=== PATIENT | female | born 1950 | race Caucasian/White ===

== ENCOUNTER → 2019-06-24 14:27 | Outpatient (ROUT) | payer MEDICARE, OTHER, SELFPAY ==
[2019-06-24 15:08] LABS: Thyroid Stimulating Hormone 0.82 uIU/mL (0.47-4.68)
== END ==
PROVIDERS: Visit Provider Internal Medicine
DX: E03.9 Hypothyroidism, unspecified (principal)
CPT/HCPCS: 84443

== ENCOUNTER → 2019-07-24 09:16 | Outpatient (CLI) | payer MEDICARE, OTHER, SELFPAY ==
[2019-07-24 10:27] LABS: BUN Creatinine Ratio 11.1 (6-22); Blood Urea Nitrogen 10 mg/dL (7-17); Estimated Glomerular Filt Rate > 60.0 mL/min (>60)
--- NOTE | 2019-07-24 10:46 | DI.CT.S_ITS ---
PROCEDURE: CT ABDOMEN PELVIS W CON INDICATIONS: generalized abdominal pain TECHNIQUE: After the administration of oral and intravenous contrast, 5 mm thick sections acquired from the diaphragms to the symphysis. 5 mm thick coronal and sagittal reformats were performed. For radiation dose reduction, the following was used: automated exposure control, adjustment of mA and/or kV according to patient size. COMPARISON: None. FINDINGS: Image quality: Excellent. ABDOMEN: Lung bases: Lung bases are clear. Heart size is normal. Solid organs: A 1 cm hypodensity adjacent to the falciform ligament is most likely secondary to focal fat. Liver is normal in size and enhancement. Gallbladder is normal. Biliary system is non-dilated. Pancreas enhances normally. Spleen is normal in size and enhancement. No adrenal nodules. Kidneys are normal in size and enhancement, without hydronephrosis. Peritoneum and bowel: Stomach, small bowel, and colon loops are normal in caliber. There is mild concentric thickening of gastric antrum. There may be cecal wall thickening. There is a moderate amount of stool in colon. No free fluid or air. Nodes and vessels: No retroperitoneal or mesenteric adenopathy. Aorta and inferior vena cava are normal in caliber. Miscellaneous: No ventral hernias. PELVIS: Genitourinary: Bladder wall thickness is normal. Miscellaneous: No inguinal hernias or adenopathy. Bones: No suspicious bony lesions. No vertebral body compression fractures. IMPRESSION: 1. Mild concentric thickening of gastric antrum. Differential diagnosis include enteritis, peptic ulcer disease and artifact from peristalsis. 2. Appearance of mild cecal wall thickening versus artifact. If clinically indicated, endoscopic evaluation may be obtained for further ventilation. 3. Moderate amount of stool in colon. 4. A 1 cm hepatic hypodensity adjacent to the falciform ligament, most likely caused by focal fat. Dictated by: Gustavo Cardenas M.D. on 07/24/2019 at 11:55 Approved by: Gustavo Cardenas M.D. on 07/24/2019 at 17:15
== END ==
PROVIDERS: Visit Provider Internal Medicine
DX: R10.84 Generalized abdominal pain (principal)
CPT/HCPCS: 36415; 74177; 82565; 84520; Q9967

== ENCOUNTER → 2020-03-13 08:22 | Outpatient (CLI) | payer MEDICARE, OTHER, SELFPAY ==
--- NOTE | 2020-03-13 | DI.MG.S_ITS ---
UNILATERAL RIGHT DIGITAL SCREENING MAMMOGRAM 3D/2D WITH CAD POST MASTECTOMY: 03/13/2020 CLINICAL: Routine screening. Personal history of left breast cancer. Comparison is made to exams dated: 01/23/2019 mammogram, 01/15/2018 mammogram, and 01/10/2017 mammogram - [facility]. There are scattered fibroglandular elements in right breast. Current study was also evaluated with a Computer Aided Detection (CAD) system. No significant masses, calcifications, or other findings are seen in the breast. There has been no significant interval change. IMPRESSION: NEGATIVE There is no mammographic evidence of malignancy. A 1 year screening mammogram is recommended. This exam was interpreted at Station ID: [id number]. NOTE: For mammograms, a report in lay terms will be sent to the patient. Approximately 15% of breast malignancies will not be visualized mammographically. In the management of a palpable breast mass, a negative mammogram must not discourage biopsy of a clinically suspicious lesion. Electronically Signed By: Virgilio man/beto:03/15/2020 07:25:29 copy to: JANUSZ LEAVITT letter sent: Normal Exam ACR BI-RADS Category 1: Negative 3341F
== END ==
PROVIDERS: PCP Internal Medicine; Referring Provider Internal Medicine; Visit Provider Internal Medicine
DX: Z12.31 Encounter for screening mammogram for malignant neoplasm of breast (principal); Z85.3 Personal history of malignant neoplasm of breast
CPT/HCPCS: 77063; 77067

== ENCOUNTER → 2020-10-04 19:08 | Outpatient (ROUT) | payer MEDICARE, OTHER, SELFPAY ==
[2020-10-04 19:22] LABS: Add Manual Diff / Slide Review NO; Basophils Absolute Auto 0 /uL (0-100); Basophils Percent Auto 0.4 % (0-2); Eosinophils Absolute Auto 100 /uL (0-450); Eosinophils Percent Auto 2.2 % (2-4); Hematocrit 39.7 % (36-46); Lymphocytes Absolute Auto 1600 /uL (1100-4500); Lymphocytes Percent Auto 34.7 % (25-40); Mean Corpuscular HGB Conc 32.8 % (30-36); Mean Corpuscular Hemoglobin 29.7 PG (26-34); Mean Corpuscular Volume 90.6 fL (80-100); Monocytes Absolute Auto 400 /uL (0-900); Monocytes Percent Auto 9.9 % (3-14); Neutrophils Absolute Auto 2400 /uL (1500-7000); Neutrophils Percent Auto 52.8 % (50-75); Platelet Count 217 X10^3/uL (150-400); Red Blood Cell Count 4.38 X10^6/uL (4.0-5.2); Red Cell Distribution Width 13.3 % (11.6-14.8); White Blood Cell Count 4.5 X10^3/uL (4.5-11.0)
[2020-10-04 19:29] LABS: Aspartate Aminotransferase 26 IU/L (14-36); BUN Creatinine Ratio 18.1 (6-22); Blood Urea Nitrogen 15 mg/dL (7-17); Calcium 9.8 mg/dL (8.4-10.2); Carbon Dioxide 34 mmol/L (22-32); Chloride 100 mmol/L (98-107); Cholesterol 242 mg/dL (140-199); Estimated Glomerular Filt Rate > 60.0 mL/min (>60); Glucose 107 mg/dL (80-110); HDL Cholesterol 69 mg/dL (40-60); HEMOLYSIS < 15 (0-50); LDL Cholesterol Calculated 163 mg/dL (<100); Potassium 4.4 mmol/L (3.4-5.1); Sodium 138 mmol/L (137-145); Triglycerides 52 mg/dL (35-150)
[2020-10-04 19:58] LABS: TSH w/ Reflex to FT4 0.86 uIU/mL (0.47-4.68)
== END ==
PROVIDERS: PCP Internal Medicine; Visit Provider Internal Medicine
DX: E78.2 Mixed hyperlipidemia (principal); E03.9 Hypothyroidism, unspecified
CPT/HCPCS: 80048; 80061; 84443; 84450; 85025

== ENCOUNTER → 2021-03-24 10:37 | Outpatient (CLI) | payer MEDICARE, OTHER, SELFPAY ==
--- NOTE | 2021-03-24 | DI.MG.S_ITS ---
UNILATERAL RIGHT DIGITAL SCREENING MAMMOGRAM 3D/2D WITH CAD: 03/24/2021 CLINICAL: Routine screening. Personal history of left breast cancer. Comparison is made to exams dated: 03/13/2020 mammogram - [facility], 01/23/2019 mammogram, and 01/15/2018 mammogram - [facility]. There are scattered fibroglandular elements in right breast. Current study was also evaluated with a Computer Aided Detection (CAD) system. No significant masses, calcifications, or other findings are seen in the breast. There has been no significant interval change. IMPRESSION: NEGATIVE There is no mammographic evidence of malignancy. A 1 year screening mammogram is recommended. This exam was interpreted at Station ID: [id number]. NOTE: For mammograms, a report in lay terms will be sent to the patient. Approximately 15% of breast malignancies will not be visualized mammographically. In the management of a palpable breast mass, a negative mammogram must not discourage biopsy of a clinically suspicious lesion. Electronically Signed By: Wayne adhikari/beto:03/24/2021 11:13:32 copy to: JANUSZ LEAVITT letter sent: Normal Exam ACR BI-RADS Category 1: Negative 3341F
== END ==
PROVIDERS: PCP Internal Medicine; Referring Provider Internal Medicine Hematology & Oncology; Visit Provider Internal Medicine Hematology & Oncology
DX: Z12.31 Encounter for screening mammogram for malignant neoplasm of breast (principal); Z85.3 Personal history of malignant neoplasm of breast
CPT/HCPCS: 77063; 77067

== ENCOUNTER → 2021-11-02 11:25 | Outpatient (CLI) | payer MEDICARE, OTHER, SELFPAY ==
[2021-11-02 12:21] LABS: Add Manual Diff / Slide Review NO; Basophils Absolute Auto 0 /uL (0-100); Basophils Percent Auto 0.4 % (0-2); Eosinophils Absolute Auto 0 /uL (0-450); Hematocrit 37.4 % (36-46); Hemoglobin 12.5 g/dL (12.0-16.0); Lymphocytes Absolute Auto 1200 /uL (1100-4500); Lymphocytes Percent Auto 25.8 % (25-40); Mean Corpuscular HGB Conc 33.4 % (30-36); Mean Corpuscular Hemoglobin 30.3 PG (26-34); Mean Corpuscular Volume 90.7 fL (80-100); Monocytes Absolute Auto 400 /uL (0-900); Neutrophils Absolute Auto 3000 /uL (1500-7000); Neutrophils Percent Auto 63.8 % (50-75); Platelet Count 199 X10^3/uL (150-400); Red Blood Cell Count 4.12 X10^6/uL (4.0-5.2); Red Cell Distribution Width 13.6 % (11.6-14.8); White Blood Cell Count 4.7 X10^3/uL (4.5-11.0)
[2021-11-02 12:30] LABS: Alanine Aminotransferase 16 IU/L (<35); Albumin 4.7 g/dL (3.5-5.0); Albumin Globulin Ratio 1.7 (1.0-2.8); Alkaline Phosphatase 57 U/L (38-126); Aspartate Aminotransferase 22 IU/L (14-36); BUN Creatinine Ratio 21.8 (6-22); Bilirubin Total 0.4 mg/dL (0.2-1.3); Blood Urea Nitrogen 19 mg/dL (7-17); Calcium 9.3 mg/dL (8.4-10.2); Carbon Dioxide 30 mmol/L (22-32); Chloride 104 mmol/L (98-107); Cholesterol 269 mg/dL (140-199); Estimated Glomerular Filt Rate > 60.0 mL/min (>60); Globulin 2.7 g/dL (1.7-4.1); Glucose 91 mg/dL (80-110); HDL Cholesterol 72 mg/dL (40-60); HEMOLYSIS < 15 (0-50); LDL Cholesterol Calculated 175 mg/dL (<100); Potassium 4.6 mmol/L (3.4-5.1); Sodium 140 mmol/L (137-145); Total Protein 7.4 g/dL (6.3-8.2); Triglycerides 112 mg/dL (35-150)
[2021-11-02 13:01] LABS: Thyroid Stimulating Hormone 8.42 uIU/mL (0.47-4.68)
== END ==
PROVIDERS: PCP Internal Medicine; Referring Provider Internal Medicine; Visit Provider Internal Medicine
DX: E03.9 Hypothyroidism, unspecified (principal); E78.2 Mixed hyperlipidemia; I10 Essential (primary) hypertension
CPT/HCPCS: 36415; 80053; 80061; 84443; 85025

== ENCOUNTER → 2021-12-07 14:24 | Outpatient (CLI) | payer MEDICARE, OTHER, SELFPAY ==
[2021-12-07 16:41] LABS: Free T4, Direct Thyroxine 1.07 ng/dL (0.78-2.19)
== END ==
PROVIDERS: PCP Internal Medicine; Referring Provider Internal Medicine; Visit Provider Internal Medicine
DX: E03.9 Hypothyroidism, unspecified (principal)
CPT/HCPCS: 36415; 84439; 84443

== ENCOUNTER → 2022-03-29 13:52 | Outpatient (CLI) | payer MEDICARE, OTHER, SELFPAY ==
--- NOTE | 2022-03-29 | DI.MG.S_ITS ---
UNILATERAL RIGHT DIGITAL SCREENING MAMMOGRAM 3D/2D WITH CAD: 03/29/2022 CLINICAL: Routine screening. Personal history of left breast cancer. Comparison is made to exams dated: 03/24/2021 mammogram, 03/13/2020 mammogram - [facility], and 01/23/2019 mammogram - [facility]. There are scattered areas of fibroglandular density in the right breast (category b / 25%-50% glandular tissue). Current study was also evaluated with a Computer Aided Detection (CAD) system. No significant masses, calcifications, or other findings are seen in the breast. There has been no significant interval change. IMPRESSION: NEGATIVE There is no mammographic evidence of malignancy. A 1 year screening mammogram is recommended. This exam was interpreted at Station ID: [id number]. NOTE: For mammograms, a report in lay terms will be sent to the patient. Approximately 15% of breast malignancies will not be visualized mammographically. In the management of a palpable breast mass, a negative mammogram must not discourage biopsy of a clinically suspicious lesion. Electronically Signed By: Efren amador/beto:03/29/2022 15:02:13 copy to: STEPHON LAI copy to: Leyda Valdez letter sent: Normal Exam ACR BI-RADS Category 1: Negative 3341F
== END ==
PROVIDERS: PCP Internal Medicine; Referring Provider Internal Medicine; Visit Provider Internal Medicine
DX: Z12.31 Encounter for screening mammogram for malignant neoplasm of breast (principal); Z85.3 Personal history of malignant neoplasm of breast
CPT/HCPCS: 77063; 77067

== ENCOUNTER → 2022-04-14 15:43 | Outpatient (CLI) | payer MEDICARE, OTHER, SELFPAY ==
[2022-04-14 17:04] LABS: Aspartate Aminotransferase 24 IU/L (14-36); Cholesterol 223 mg/dL (140-199); HDL Cholesterol 64 mg/dL (40-60); LDL Cholesterol Calculated 137 mg/dL (<100); Triglycerides 111 mg/dL (35-150)
[2022-04-14 17:33] LABS: TSH w/ Reflex to FT4 4.25 uIU/mL (0.47-4.68)
== END ==
PROVIDERS: PCP Internal Medicine; Referring Provider Internal Medicine; Visit Provider Internal Medicine
DX: E03.9 Hypothyroidism, unspecified (principal); E78.2 Mixed hyperlipidemia
CPT/HCPCS: 36415; 80061; 84443; 84450

== ENCOUNTER → 2022-12-20 15:20 | Outpatient (CLI) | payer MEDICARE, OTHER, SELFPAY ==
[2022-12-20 16:09] LABS: Hematocrit 37.7 % (36-46); Hemoglobin 12.8 g/dL (12.0-16.0); Mean Corpuscular Hemoglobin 30.9 PG (26-34); Mean Corpuscular Volume 91.1 fL (80-100); Platelet Count 212 X10^3/uL (150-400); Red Blood Cell Count 4.14 X10^6/uL (4.0-5.2); Red Cell Distribution Width 13.3 % (11.6-14.8); White Blood Cell Count 6.3 X10^3/uL (4.5-11.0)
[2022-12-20 16:25] LABS: Alanine Aminotransferase 23 IU/L (<35); Albumin 4.3 g/dL (3.5-5.0); Albumin Globulin Ratio 1.5 (1.0-2.8); Alkaline Phosphatase 78 U/L (38-126); Aspartate Aminotransferase 22 IU/L (14-36); Bilirubin Total 0.3 mg/dL (0.2-1.3); Blood Urea Nitrogen 15 mg/dL (7-17); Calcium 9.4 mg/dL (8.4-10.2); Carbon Dioxide 30 mmol/L (22-32); Chloride 103 mmol/L (98-107); Cholesterol 199 mg/dL (140-199); Estimated Glomerular Filt Rate > 60 mL/min (>60); Globulin 2.8 g/dL (1.7-4.1); Glucose 102 mg/dL (80-110); HDL Cholesterol 66 mg/dL (40-60); HEMOLYSIS < 15 (0-50); LDL Cholesterol Calculated 99 mg/dL (<100); Potassium 4.1 mmol/L (3.4-5.1); Sodium 139 mmol/L (137-145); Total Protein 7.1 g/dL (6.3-8.2); Triglycerides 169 mg/dL (35-150)
[2022-12-20 16:55] LABS: TSH w/ Reflex to FT4 1.41 uIU/mL (0.47-4.68)
== END ==
PROVIDERS: PCP Internal Medicine; Referring Provider Internal Medicine; Visit Provider Internal Medicine
DX: E03.9 Hypothyroidism, unspecified (principal); E78.2 Mixed hyperlipidemia; I10 Essential (primary) hypertension
CPT/HCPCS: 36415; 80053; 80061; 84443; 85027

== ENCOUNTER 2023-02-15 08:23 | Day surgery (SDC) | payer MEDICARE, OTHER, SELFPAY ==
[2023-02-15] MEDS: LACTATED RINGERS 1,000 ML 100 ML IV (08:51)
[2023-02-15 08:57] VITALS: BP 153/83; PULSE 88; RESP 16; TEMP 36.4; O2SAT 98; BMI 20.3
--- NOTE | 2023-02-15 09:31 | PM.HP.1 ---
History of Present Illness History of Present Illness Date Patient Seen: 02/15/23 Time Patient Seen: 09:31 Chief complaint: Colonoscopy Narrative: Lluvia is a 72-year-old woman who is here for colonoscopy she last had 1 about 5 years ago and no polyps were found but she had polyps before that. She has no known family history of colon cancer. [facility] Medical History Allergic rhinitis Anxiety (~1984) Benign essential tremor Breast cancer (~2003) Essential (primary) hypertension History of breast cancer History of colon polyps Hypothyroidism Mixed hyperlipidemia Osteopenia Polyneuropathy, unspecified Surgical History Anesthesia History of mastectomy (~2003) History of thyroidectomy (~2004) Family History Brother Cancer Sister Cancer Social History household members: spouse Smoking Status: Never smoker alcohol intake: current Meds Home Medications and Allergies Home Medications Medication Instructions Recorded Confirmed Type cholecalciferol (vitamin D3) 50 50 mcg PO DAILY 11/02/21 02/15/23 History mcg (2,000 unit) capsule carvedilol 6.25 mg tablet 6.25 mg PO BID #180 tabs 08/08/22 02/15/23 Rx levothyroxine 75 mcg tablet 75 mcg PO DAILY #90 tabs 08/08/22 02/15/23 Rx olanzapine 20 mg tablet 20 mg PO BEDTIME #90 tabs 08/08/22 02/15/23 Rx rosuvastatin 20 mg tablet 20 mg PO DAILY #90 tabs 08/08/22 02/15/23 Rx bupropion HCl 150 mg tablet,12 hr 150 mg PO BID #180 ea 10/12/22 02/15/23 Rx sustained-release Allergies Allergy/AdvReac Type Severity Reaction Status Date / Time paclitaxel [From Taxol] AdvReac Severe shortness Verified 02/15/23 08:52 of breath Exam Vital Signs (past 8 hours): - 02/15/23 08:57 Temperature 97.6 F Pulse Rate 88 Respiratory Rate 16 Blood Pressure 153/83 H Pulse Oximetry 98 Oxygen Delivery Method Room Air Oxygen Delivery Method Room Air Const General: healthy appearing Assessment & Plan Assessment and plan (1) History of colon polyps: Status: Acute Plan Lluvia is a 72-year-old woman with a history of colon polyps but no polyps 5 years on her last we will proceed with a colonoscopy. If she has no polyps today I think she could stop cancer.
[2023-02-15 10:13] VITALS: BP 89/53; PULSE 70; RESP 17; TEMP 36.4; O2SAT 97
--- NOTE | 2023-02-15 10:14 | PM.OP.COLON ---
Operative Date/Time/Diagnoses Date of procedure: 02/15/23 Time of procedure: 10:14 Pre-op diagnosis: History of colon polyps Post-op diagnosis: same Procedure & Clinicians Study performed: Colonoscopy Same procedure as scheduled: Yes Surgeon: Robby Oneill Procedure Notes Procedure in detail: Surgeon: Robby Oneill MD Anesthesia: Kyrie Rosenbaum CRNA Procedure: The patient was brought to the endoscopy suite, placed in left lateral decubitus position. The patient was connected to monitoring devices. A time-out was performed. Sedation was administered. Once the patient was adequately sedated, a digital rectal exam was performed and was normal. The scope was then inserted and advanced to the cecum where the appendiceal orifice was identified and photographed. The scope was then slowly withdrawn over greater than 6 minutes. The mucosa was thoroughly inspected. The prep was inadequate to completely clear the colon especially in the left colon. No mucosal abnormalities were seen in the areas that were visible. The scope was straightened and removed. The patient was awakened and brought to recovery. Scope withdrawal time: 8 minutes Sedation time: 25 minutes EBL: 0 Findings: Inadequate prep Post-procedure Plan for aftercare: Recommend rescheduling another colonoscopy due to poor prep. Disposition: PACU
[2023-02-15 10:17] VITALS: BP 104/60; PULSE 69; RESP 19; O2SAT 100
[2023-02-15 10:22] VITALS: BP 105/61; PULSE 85; RESP 15; O2SAT 99
[2023-02-15 10:27] VITALS: BP 118/63; PULSE 68; RESP 17; TEMP 36.4; O2SAT 99
== END 2023-02-15 10:40 | disposition home or self-care (01) ==
PROVIDERS: PCP Internal Medicine; Referring Provider Surgery; Visit Provider Surgery
PROC: 0DJD8ZZ Inspection of Lower Intestinal Tract, Via Natural or Artificial Opening Endoscopic (ICD-10-PCS; CPT 45378; principal; 2023-02-15 09:30)
DX: Z86.010 Personal history of colon polyps (principal); I10 Essential (primary) hypertension; E03.9 Hypothyroidism, unspecified
CPT/HCPCS: 45378; J2704

== ENCOUNTER → 2023-03-30 11:26 | Outpatient (CLI) | payer MEDICARE, OTHER, SELFPAY ==
--- NOTE | 2023-03-30 11:27 | DI.MG.S_ITS ---
UNILATERAL RIGHT DIGITAL SCREENING MAMMOGRAM 3D/2D WITH CAD: 03/30/2023 CLINICAL: Routine screening. Personal history of left breast cancer. Comparison is made to exams dated: 03/29/2022 mammogram, 03/24/2021 mammogram, and 03/13/2020 mammogram - [facility]. There are scattered areas of fibroglandular density in the right breast (category b / 25%-50% glandular tissue). Current study was also evaluated with a Computer Aided Detection (CAD) system. No significant masses, calcifications, or other findings are seen in the breast. There has been no significant interval change. IMPRESSION: NEGATIVE There is no mammographic evidence of malignancy. A 1 year screening mammogram is recommended. This exam was interpreted at Station ID: [id number]. NOTE: For mammograms, a report in lay terms will be sent to the patient. Approximately 15% of breast malignancies will not be visualized mammographically. In the management of a palpable breast mass, a negative mammogram must not discourage biopsy of a clinically suspicious lesion. Electronically Signed By: Adan muñoz/beto:03/30/2023 11:58:21 copy to: STEPHON LAI letter sent: Normal Exam ACR BI-RADS Category 1: Negative 3341F
== END ==
PROVIDERS: PCP Internal Medicine; Referring Provider Internal Medicine Hematology & Oncology; Visit Provider Internal Medicine Hematology & Oncology
DX: Z12.31 Encounter for screening mammogram for malignant neoplasm of breast (principal); Z85.3 Personal history of malignant neoplasm of breast
CPT/HCPCS: 77063; 77067

== ENCOUNTER 2023-05-03 13:37 | Day surgery (SDC) | payer MEDICARE, OTHER, SELFPAY ==
--- NOTE | 2023-05-03 | PATH_ITS ---
[facility] Accession Number: [id number] No. of containers..01 Tissue . 01 Material submitted: . sigmoid colon - SIGMOID POLYP . 01 Diagnosis: A. Sigmoid Colon Polyp, Polypectomy: Tubular adenoma. MRV 05/07/2023 1742 Local . 01 Electronically signed: . Sandie Couch MD, Pathologist NPI- [id number] . 01 Gross description: . SIGMOID POLYP: Received in formalin is 3 fragment(s) of rizzo, soft tissue measuring 0.6 x 0.5 x 0.4 cm to 0.5 x 0.3 x 0.3 cm submitted entirely in 1 cassette(s) /AAY 05/04/2023 0249 Local . 01 Pathologist provided ICD-10: D12.6 . 01 CPT . 668480 Specimen Comment: A courtesy copy of this report has been sent to [phone] Performed at: [address] [facility] [address] [place] [address], [place], [place] [id number] MD Wayne Huynh MD Phone: [phone]
[2023-05-03 15:13] VITALS: BP 137/70; PULSE 83; RESP 18; TEMP 36.4; O2SAT 100; BMI 20.1
[2023-05-03] MEDS: LACTATED RINGERS 1,000 ML 42 ML IV (15:30)
--- NOTE | 2023-05-03 15:41 | P.HP_ITS ---
History of Present Illness History of Present Illness Date Patient Seen: 05/03/23 Time Patient Seen: 15:41 Chief complaint: Colonoscopy Narrative: Lluvia is a 72-year-old woman who is here for a colonoscopy. Has had polyps on prior colonoscopies 5 years ago. She attempted a colonoscopy earlier this year but prep was inadequate so she has tried again with an extra dose of MiraLax and low-fiber for 5 days. She is not so sure it made any difference though. [facility] Medical History Allergic rhinitis Anxiety (~1984) Benign essential tremor Breast cancer (~2003) Essential (primary) hypertension History of breast cancer History of colon polyps Hypothyroidism Mixed hyperlipidemia Osteopenia Polyneuropathy, unspecified Surgical History Anesthesia History of mastectomy (~2003) History of thyroidectomy (~2004) Family History Brother Cancer Sister Cancer Social History household members: spouse Smoking Status: Never smoker alcohol intake: current Meds Home Medications and Allergies Home Medications Medication Instructions Recorded Confirmed Type cholecalciferol (vitamin D3) 50 50 mcg PO DAILY 11/02/21 05/03/23 History mcg (2,000 unit) capsule carvedilol 6.25 mg tablet 6.25 mg PO BID #180 tabs 08/08/22 05/03/23 Rx levothyroxine 75 mcg tablet 75 mcg PO DAILY #90 tabs 08/08/22 05/03/23 Rx olanzapine 20 mg tablet 20 mg PO BEDTIME #90 tabs 08/08/22 05/03/23 Rx rosuvastatin 20 mg tablet 20 mg PO DAILY #90 tabs 08/08/22 05/03/23 Rx bupropion HCl 150 mg tablet,12 hr 150 mg PO BID #180 ea 10/12/22 05/03/23 Rx sustained-release Allergies Allergy/AdvReac Type Severity Reaction Status Date / Time paclitaxel [From Taxol] AdvReac Severe shortness Verified 05/03/23 15:12 of breath Exam Vital Signs (past 8 hours): - 05/03/23 15:13 Temperature 97.5 F L Pulse Rate 83 Respiratory Rate 18 Blood Pressure 137/70 Pulse Oximetry 100 Oxygen Delivery Method Room Air Oxygen Delivery Method Room Air Const General: No acute distress Resp Effort & Inspection: normal respiratory effort Assessment & Plan Assessment and plan (1) History of colon polyps: Status: Acute Plan Lluvia is a 72-year-old woman who has a history of colon polyps. We will proceed with colonoscopy today.
--- NOTE | 2023-05-03 16:26 | PM.OP.COLON ---
Operative Date/Time/Diagnoses Date of procedure: 05/03/23 Time of procedure: 16:26 Pre-op diagnosis: History of polyps Post-op diagnosis: same Procedure & Clinicians Study performed: Attempted colonoscopy Same procedure as scheduled: Yes Surgeon: Robby Oneill Procedure Notes Procedure in detail: Surgeon: Robby Oneill MD Anesthesia: Barbra Durbin DO Procedure: The patient was brought to the endoscopy suite, placed in left lateral decubitus position. The patient was connected to monitoring devices. A time-out was performed. Sedation was administered. Once the patient was adequately sedated, a digital rectal exam was performed and was normal. As far as possible but there was large solid stool throughout the left colon. The scope could not be safely advanced beyond the splenic flexure. There was a 7 mm polyp in the descending colon at roughly 28 cm which was removed with a hot snare. The procedure was then terminated because of the incomplete prep Scope withdrawal time: Not applicable Sedation time: 8 minutes EBL: 5 mL Findings: Inadequate prep and 7 mm polyp in the descending colon Post-procedure Disposition: PACU
[2023-05-03 16:29] VITALS: BP 91/32; PULSE 80; RESP 22; TEMP 36.7; O2SAT 100
[2023-05-03 16:35] VITALS: BP 94/36; PULSE 80; RESP 20; O2SAT 97
[2023-05-03 16:40] VITALS: BP 120/48; PULSE 69; RESP 15; TEMP 37.1; O2SAT 100
== END 2023-05-03 16:53 | disposition home or self-care (01) ==
PROVIDERS: PCP Internal Medicine; Referring Provider Surgery; Visit Provider Surgery
PROC: 0DJD8ZZ Inspection of Lower Intestinal Tract, Via Natural or Artificial Opening Endoscopic (ICD-10-PCS; CPT 45378; principal; 2023-05-03 14:45)
DX: Z12.11 Encounter for screening for malignant neoplasm of colon (principal); Z86.010 Personal history of colon polyps; D12.5 Benign neoplasm of sigmoid colon
CPT/HCPCS: 45338; J2704

== ENCOUNTER 2023-08-30 07:57 | Day surgery (SDC) | payer MEDICARE, OTHER, SELFPAY ==
--- NOTE | 2023-08-30 | PATH_ITS ---
[facility] Accession Number: [id number] No. of containers..01 Tissue . 01 Material submitted: . sigmoid colon - SIGMOID POLYP . 01 Diagnosis: Sigmoid Colon Polyp, Biopsy: Hyperplastic polyp. MRV 09/03/2023 1457 Local . 01 Electronically signed: . Elvia Duncan MD, Pathologist NPI- [id number] . 01 Gross description: . SIGMOID POLYP: Received in formalin is 1 fragment(s) of rizzo, soft tissue measuring 0.2 x 0.2 x 0.2 cm submitted entirely in 1 cassette(s) /ISHAN 08/31/20232043 Local . 01 Pathologist provided ICD-10: D12.5 . 01 CPT . 103552 Specimen Comment: A courtesy copy of this report has been sent to [phone] Performed at: 01 [facility] [address] [place] [address], [place], [place] [id number] MD Wayne Huynh MD Phone: [phone]
[2023-08-30 08:58] VITALS: BP 149/79; PULSE 76; RESP 16; TEMP 36.2; O2SAT 98
[2023-08-30] MEDS: LACTATED RINGERS 1,000 ML 84 ML IV ×2 (09:03→10:45)
--- NOTE | 2023-08-30 09:11 | P.HP_ITS ---
History of Present Illness History of Present Illness Date Patient Seen: 08/30/23 Time Patient Seen: 09:11 Chief complaint: Colonoscopy Narrative: Lluvia is a 73 year old woman who has had two attempted colonoscopies last year but was unable to get adequately prepped. She did have 1 tubular adenoma removed last time despite the poor prep. It was felt that this was due to slow colon transit time. See recent office note for more details. This time she did a double dose of prep and started 2 days ago and has had good results. [facility] Medical History (Updated 06/21/23 @ 05:58 by Eh Escobar MD) Slow transit constipation Allergic rhinitis Benign essential tremor History of breast cancer History of colon polyps Osteopenia Polyneuropathy, unspecified Mixed hyperlipidemia Essential (primary) hypertension Anxiety (~1984) Hypothyroidism Surgical History Anesthesia History of thyroidectomy (~2004) History of mastectomy (~2003) Family History Brother Cancer Sister Cancer Social History household members: spouse Smoking Status: Never smoker alcohol intake: current Meds Home Medications and Allergies Home Medications Medication Instructions Recorded Confirmed Type cholecalciferol (vitamin D3) 50 50 mcg PO DAILY 11/02/21 08/30/23 History mcg (2,000 unit) capsule bupropion HCl 150 mg tablet,12 hr 150 mg PO BID #180 ea 10/12/22 08/30/23 Rx sustained-release olanzapine 20 mg tablet 20 mg PO BEDTIME #90 tabs 06/11/23 08/30/23 Rx carvedilol 6.25 mg tablet 6.25 mg PO BID #180 tabs 08/08/23 08/30/23 Rx levothyroxine 75 mcg tablet 75 mcg PO DAILY #90 tabs 08/08/23 08/30/23 Rx rosuvastatin 20 mg tablet 20 mg PO DAILY #90 tabs 08/08/23 08/30/23 Rx Allergies Allergy/AdvReac Type Severity Reaction Status Date / Time paclitaxel [From Taxol] AdvReac Severe shortness Verified 06/21/23 08:07 of breath Exam Vital Signs (past 8 hours): - 08/30/23 08:58 Temperature 97.2 F L Pulse Rate 76 Respiratory Rate 16 Blood Pressure 149/79 H Pulse Oximetry 98 Oxygen Delivery Method Room Air Oxygen Delivery Method Room Air Const General: healthy appearing and No acute distress Assessment & Plan Assessment and plan (1) History of colon polyps: Status: Acute Plan We reviewed the risks and benefits of colonoscopy and she would like to proceed.
--- NOTE | 2023-08-30 10:38 | PM.OP.COLON ---
Operative Date/Time/Diagnoses Date of procedure: 08/30/23 Time of procedure: 10:38 Pre-op diagnosis: Colon cancer screening and history of polyps Post-op diagnosis: same Procedure & Clinicians Study performed: Colonoscopy Same procedure as scheduled: Yes Surgeon: Robby Oneill Procedure Notes Procedure in detail: Surgeon: Robby Oneill MD Anesthesia: Dheeraj Narayan MD Procedure: The patient is a 73-year-old woman with a history of polyps who had 2 failed attempts at colonoscopies within the past year due to inadequate prep. This time she was given double dose prep and an extra day. She was brought to the endoscopy suite, placed in left lateral decubitus position. The patient was connected to monitoring devices. A time-out was performed. Sedation was administered. Once the patient was adequately sedated, a digital rectal exam was performed and was normal. The scope was then inserted and advanced to the cecum with some difficulty. Repositioning and abdominal pressure were required to reach the cecum. Once in the cecum the appendiceal orifice was identified and photographed. The scope was then slowly withdrawn over greater than 6 minutes. The mucosa was thoroughly inspected. There was a 5 mm polyp in the distal sigmoid colon removed with a cold snare. The scope was retroflexed in the rectum. No other abnormalities were seen. The scope was straightened and removed. The patient was awakened and brought to recovery. Scope withdrawal time: 13 minutes Sedation time: 29 minutes EBL: 2 mL Findings: 5 mm cecal polyp Post-procedure Disposition: PACU
[2023-08-30 10:41] VITALS: BP 105/36; PULSE 67; RESP 17; TEMP 36.2; O2SAT 100
[2023-08-30 10:45] VITALS: BP 98/50; PULSE 69; RESP 11; O2SAT 99
[2023-08-30 10:52] VITALS: BP 103/41; PULSE 66; RESP 16; O2SAT 98
== END 2023-08-30 11:05 | disposition home or self-care (01) ==
PROVIDERS: PCP Internal Medicine; Referring Provider Surgery; Visit Provider Surgery
PROC: 0DJD8ZZ Inspection of Lower Intestinal Tract, Via Natural or Artificial Opening Endoscopic (ICD-10-PCS; CPT 45378; principal; 2023-08-30 09:15)
DX: Z12.11 Encounter for screening for malignant neoplasm of colon (principal); Z86.010 Personal history of colon polyps; D12.5 Benign neoplasm of sigmoid colon
CPT/HCPCS: 45385; J2704

== ENCOUNTER → 2023-12-25 14:02 | Outpatient (CLI) | payer MEDICARE, OTHER, SELFPAY ==
[2023-12-25 16:35] LABS: Aspartate Aminotransferase 22 IU/L (14-36); BUN Creatinine Ratio 20.7 (6-22); Blood Urea Nitrogen 19 mg/dL (7-17); Calcium 8.9 mg/dL (8.4-10.2); Carbon Dioxide 31 mmol/L (22-32); Chloride 103 mmol/L (98-107); Cholesterol 190 mg/dL (140-199); Estimated Glomerular Filt Rate > 60 mL/min (>60); Glucose 120 mg/dL (80-110); HDL Cholesterol 72 mg/dL (40-60); HEMOLYSIS < 15 (0-50); LDL Cholesterol Calculated 101 mg/dL (<100); Potassium 3.9 mmol/L (3.4-5.1); Sodium 139 mmol/L (137-145); Triglycerides 83 mg/dL (35-150)
[2023-12-25 17:02] LABS: TSH w/ Reflex to FT4 2.04 uIU/mL (0.47-4.68)
== END ==
PROVIDERS: PCP Internal Medicine; Referring Provider Internal Medicine; Visit Provider Internal Medicine
DX: E03.9 Hypothyroidism, unspecified (principal); E78.2 Mixed hyperlipidemia; I10 Essential (primary) hypertension
CPT/HCPCS: 80048; 80061; 84443; 84450

== ENCOUNTER → 2024-03-31 12:59 | Outpatient (CLI) | payer MEDICARE, OTHER, SELFPAY ==
--- NOTE | 2024-03-31 13:00 | DI.MG.S_ITS ---
UNILATERAL RIGHT DIGITAL SCREENING MAMMOGRAM 3D/2D WITH CAD: 03/31/2024 CLINICAL: Routine screening. Personal history of left breast cancer. Comparison is made to exams dated: 03/30/2023 mammogram, 03/29/2022 mammogram, and 03/24/2021 mammogram - [facility]. There are scattered areas of fibroglandular density in the right breast (category b / 25%-50% glandular tissue). Current study was also evaluated with a Computer Aided Detection (CAD) system. No significant masses, calcifications, or other findings are seen in the breast. There has been no significant interval change. IMPRESSION: NEGATIVE There is no mammographic evidence of malignancy. A 1 year screening mammogram is recommended. This exam was interpreted at Station ID: [id number]. NOTE: For mammograms, a report in lay terms will be sent to the patient. Approximately 15% of breast malignancies will not be visualized mammographically. In the management of a palpable breast mass, a negative mammogram must not discourage biopsy of a clinically suspicious lesion. Electronically Signed By: Adan muñoz/beto:03/31/2024 13:32:05 copy to: STEPHON LAI copy to: Leyda Valdez letter sent: Normal Exam ACR BI-RADS Category 1: Negative 3341F
== END ==
PROVIDERS: PCP Internal Medicine; Referring Provider Internal Medicine; Visit Provider Internal Medicine
DX: Z12.31 Encounter for screening mammogram for malignant neoplasm of breast (principal); Z85.3 Personal history of malignant neoplasm of breast; R92.323 Mammographic fibroglandular density, bilateral breasts
CPT/HCPCS: 77063; 77067

== ENCOUNTER → 2025-01-01 14:07 | Outpatient (CLI) | payer MEDICARE, OTHER, SELFPAY ==
[2025-01-01 15:42] LABS: Aspartate Aminotransferase 22 IU/L (14-36); BUN Creatinine Ratio 24.7 (6-22); Blood Urea Nitrogen 19 mg/dL (7-17); Calcium 9.3 mg/dL (8.4-10.2); Carbon Dioxide 31 mmol/L (22-32); Chloride 101 mmol/L (98-107); Cholesterol 203 mg/dL (140-199); Estimated Glomerular Filt Rate > 60 mL/min (>60); Glucose 132 mg/dL (70-99); HDL Cholesterol 63 mg/dL (40-60); HEMOLYSIS < 15 (0-50); LDL Cholesterol Calculated 116 mg/dL (<100); Potassium 4.2 mmol/L (3.4-5.1); Sodium 137 mmol/L (137-145); Triglycerides 122 mg/dL (35-150)
[2025-01-01 16:15] LABS: TSH w/ Reflex to FT4 0.45 uIU/mL (0.47-4.68)
[2025-01-01 16:50] LABS: Free T4, Direct Thyroxine 1.28 ng/dL (0.78-2.19)
== END ==
PROVIDERS: PCP Internal Medicine; Referring Provider Internal Medicine; Visit Provider Internal Medicine
DX: I10 Essential (primary) hypertension (principal); E78.2 Mixed hyperlipidemia; E03.9 Hypothyroidism, unspecified
CPT/HCPCS: 36415; 80048; 80061; 84439; 84443; 84450

== ENCOUNTER → 2025-01-08 15:21 | Outpatient (CLI) | payer MEDICARE, OTHER, SELFPAY ==
[2025-01-08 16:15] LABS: Hemoglobin A1C% w Est Avg Glu 5.7 % (4.0-6.0)
[2025-01-08 16:17] LABS: Glucose 128 mg/dL (70-99)
== END ==
PROVIDERS: PCP Internal Medicine; Referring Provider Internal Medicine; Visit Provider Internal Medicine
DX: R73.01 Impaired fasting glucose (principal)
CPT/HCPCS: 36415; 82947; 83036